=== PATIENT | male | born 1985 | race Hispanic/Latino ===

== ENCOUNTER 2024-11-09 12:51 | Emergency (ER) | payer BC ==
[~2024-11-09] VITALS: Ht 172.7 cm; Wt 74.8 kg
[2024-11-09 14:28] LABS: BASOPHILS # (AUTO) 0.05 K/uL (0.00-0.20); BASOPHILS % (AUTO) 0.4 % (0.0-5.0); EOSINOPHILS # (AUTO) 0.02 K/uL (0.00-0.70); EOSINOPHILS % (AUTO) 0.2 % (0.0-8.0); HEMATOCRIT 45.1 % (42-54); IMMATURE GRANULOCYTE ABSOLUTE 0.04 K/uL (0-1); MEAN CORPUSCULAR HEMOGLOBIN 30.4 pg (27.0-33.0); MEAN CORPUSCULAR HGB CONC 34.6 g/dL (32.0-36.0); MEAN CORPUSCULAR VOLUME 87.9 fL (79-99); MONOCYTES # (AUTO) 0.7 K/uL (0.1-1.0); MONOCYTES % (AUTO) 5.6 % (3.0-13.0); NEUTROPHILS # (AUTO) 10.8 K/uL (1.8-7.7); NEUTROPHILS % (AUTO) 85.5 % (40.0-77.0); PLATELET COUNT (AUTO) 237 K/uL (130-400); RED BLOOD CELL COUNT(AUTO) 5.13 MIL/uL (4.50-6.20); RED CELL DISTRIBUTION WIDTH 12.4 % (11.0-15.5); WHITE BLOOD COUNT (AUTO) 12.7 K/uL (4.8-10.8)
[2024-11-09 14:29] LABS: APPEARANCE,URINE TURBID (CLEAR); BILIRUBIN,URINE NEGATIVE (NEGATIVE); COLOR,URINE YELLOW (YELLOW); GLUCOSE, URINE (UA) NEGATIVE (NEGATIVE); KETONES,URINE 20 mg/dL (NEGATIVE); LEUKOCYTE ESTERASE ,URINE NEGATIVE Leu/uL (NEGATIVE); NITRATE,URINE NEGATIVE (NEGATIVE); OCCULT BLOOD,URINE SMALL (NEGATIVE); PH,URINE 5.5 (5.0-8.0); PROTEIN,URINE 30 mg/dL (NEGATIVE); UROBILINOGEN,URINE 0.2 mg/dL (0.2-1.0)
[2024-11-09 14:32] LABS: ADD UA MICROSCOPIC YES
[2024-11-09 14:33] LABS: BACTERIA,URINE RARE /HPF (None Seen); MUCUS,URINE FEW LPF (None Seen); SQUAMOUS EPITHELIAL CELL,UR RARE /HPF (0-2); UNCLASSIFIED CRYSTAL 14 /HPF (None Seen); YEAST,URINE BUDDING FEW /HPF (None Seen)
--- NOTE | 2024-11-09 15:15 | NUR ---
PATIENT BEDDED TO ROOM 17
[2024-11-09 15:17] LABS: ALBUMIN 4.6 g/dL (3.5-5.0); BILIRUBIN,DIRECT 0.1 mg/dL (0.0-0.3); BILIRUBIN,TOTAL 0.6 mg/dL (0.2-1.0); CREATININE 1.3 mg/dL (0.5-1.3); POTASSIUM 3.8 mmol/L (3.5-5.1); TOTAL PROTEIN, SERUM 8.2 g/dL (6.0-8.3)
--- NOTE | 2024-11-09 15:17 | ERN ---
General Chief Complaint: Abdominal Pain Stated Complaint: SHOOTING BACK PAIN, CHILLS, WEAK Time Seen by MD: 12:52 Source: patient History of Present Illness Initial Comments PATIENT IS A 39-YEAR-OLD MALE COMING IN TO BE EVALUATED FOR LOWER ABDOMINAL PA IN. PER PATIENT THE PAIN BEGAN EARLIER IN THE MORNING. pT STATES THAT THE PAIN HAS BEEN IN THE LOWER ABDOMINAL REGION AND HE QUANTIFIES IT AT 10/10 SHARP. Allergies: Coded Allergies: No Known Drug Allergies (Unverified Allergy, Unknown, 11/09/24) Past Medical History Past Medical History: Asthma Past Surgical History: None Results Laboratory and Microbiology Lab and Micro Result Laboratory Tests Test 11/09/24 14:09 11/09/24 15:50 White Blood Count 12.7 K/uL (4.8-10.8) H Red Blood Count 5.13 MIL/uL (4.50-6.20) Hemoglobin 15.6 g/dL (14.0-18.0) Hematocrit 45.1 % (42-54) Mean Corpuscular Volume 87.9 fL (79-99) Mean Corpuscular Hemoglobin 30.4 pg (27.0-33.0) Mean Corpuscular Hemoglobin Concent 34.6 g/dL (32.0-36.0) Red Cell Distribution Width 12.4 % (11.0-15.5) Platelet Count 237 K/uL (130-400) Mean Platelet Volume 10.3 fL (7.5-10.5) Immature Granulocyte % (Auto) 0.3 % (0-1) Neutrophils (%) (Auto) 85.5 % (40.0-77.0) H Lymphocytes (%) (Auto) 8.0 % (21.0-51.0) L Monocytes (%) (Auto) 5.6 % (3.0-13.0) Eosinophils (%) (Auto) 0.2 % (0.0-8.0) Basophils (%) (Auto) 0.4 % (0.0-5.0) Neutrophils # (Auto) 10.8 K/uL (1.8-7.7) H Lymphocytes # (Auto) 1.0 K/uL (1.0-4.8) Monocytes # (Auto) 0.7 K/uL (0.1-1.0) Eosinophils # (Auto) 0.02 K/uL (0.00-0.70) Basophils # (Auto) 0.05 K/uL (0.00-0.20) Absolute Immature Granulocyte (auto 0.04 K/uL (0-1) Nucleated Red Blood Cells 0.0 % (0.0-0.19) White Cell Morphology Comment See comments Urine Color YELLOW (YELLOW) Urine Appearance TURBID (CLEAR) Urine pH 5.5 (5.0-8.0) Urine Specific [place] 1.035 (1.001-1.031) Urine Protein 30 mg/dL (NEGATIVE) H Urine Glucose (UA) NEGATIVE mg/dL (NEGATIVE) Urine Ketones 20 mg/dL (NEGATIVE) H Urine Occult Blood SMALL (NEGATIVE) H Urine Nitrate NEGATIVE (NEGATIVE) Urine Bilirubin NEGATIVE mg/dL (NEGATIVE) Urine Urobilinogen 0.2 mg/dL (0.2-1.0) Urine Leukocyte Esterase NEGATIVE Josette/uL Urine RBC 6-10 /HPF (0-1) H Urine WBC 2-5 /HPF (0-1) H Urine Squamous Epithelial Cells RARE /HPF (0-2) Urine Other Crystals (Auto) 14 /HPF (None Seen) Urine Bacteria RARE /HPF (None Seen) Urine Yeast FEW /HPF (None Seen) Sodium Level 140 mmol/L (136-145) Potassium Level 3.8 mmol/L (3.5-5.1) Chloride Level 105 mmol/L (101-111) Carbon Dioxide Level 25 mmol/L (21-32) Blood Urea Nitrogen 21 mg/dL (7-18) H Creatinine 1.3 mg/dL (0.5-1.3) Glomerular Filtration Rate Calc 72 mL/min (>90) Random Glucose 147 mg/dL (70-105) H Total Calcium 9.4 mg/dL (8.5-10.1) Total Bilirubin 0.6 mg/dL (0.2-1.0) Direct Bilirubin 0.1 mg/dL (0.0-0.3) Aspartate Amino Transf (AST/SGOT) 26 U/L (10-37) Alanine Aminotransferase (ALT/SGPT) 38 U/L (12-78) Alkaline Phosphatase 110 U/L (50-136) B-Type Natriuretic Peptide 6 pg/mL (0-100) 6 pg/mL (0-100) Total Protein 8.2 g/dL (6.0-8.3) Albumin 4.6 g/dL (3.5-5.0) Lipase 32 U/L (16-77) Urine Opiates Screen NEGATIVE (NEGATIVE) Urine Barbiturates Screen NEGATIVE (NEGATIVE) Urine Phencyclidine Screen NEGATIVE (NEGATIVE) Urine Amphetamines Screen NEGATIVE (NEGATIVE) Urine Benzodiazepines Screen NEGATIVE (NEGATIVE) Urine Cocaine Screen NEGATIVE (NEGATIVE) Urine Marijuana (THC) Screen NEGATIVE (NEGATIVE) EKG/XRAY/US/CT/MRI CT Scan Comment [place] [id number] [place] [address] IMAGING REPORT Signed PATIENT: KRYSTAL FELIX MR#: [id number] : 1985 SEX: M AGE: 39 LOCATION: [facility] ORDER 14 STATUS: REG ER REPORT#: [id number] SERVICE 13 REASON: LOWER ABD PAIN ORDERING PHYSICIAN: LINWOOD SORTO MD PROCEDURE: ABD PEL WO - CT ABDOMEN/PELVIS W/O CONTRAST CT ABDOMEN/PELVIS W/O CONTRAST HISTORY: Lower abdominal pain COMPARISON: None TECHNIQUE: Multiple sequential axial images of the abdomen and pelvis were obtained from the dome of the diaphragm through symphysis pubis. Patient was not given contrast through intravenous route. Oral contrast was not given. FINDINGS: No pleural effusion is seen bilaterally. There is no evidence of parenchymal disease or pulmonary nodule of the visualized lower lungs. Degenerative changes of the thoracolumbar spine are present. The heart is not enlarged. The liver, spleen, adrenal glands and pancreas are unremarkable. There is minimal right hydronephrosis with right perinephric fat stranding may be related to nonradiopaque stone versus recently passed stone versus pyelonephritis. Urinalysis correlation may be helpful. No hydronephrosis is seen on the left. There is mild diverticulosis. Fecal material is seen in the colon. There are normal size retroperitoneal and mesenteric lymph nodes. No ascites is seen. Appendix is not seen limiting evaluation. Pelvic sidewalls are symmetric bilaterally. Bladder is poorly distended. IMPRESSION: 1. There is minimal right hydronephrosis with right perinephric fat stranding may be related to nonradiopaque stone versus recently passed stone versus pyelonephritis. Urinalysis correlation may be helpful. No hydronephrosis is seen on the left. CT was performed with one or more following dose reduction techniques: automated exposure control, adjustment of the mA and kv according to patient's size, or use of a iterative reconstruction technique. DICTATED BY: ALEXANDR CA MD DATE: 11/09/241653 ELECTRONICALLY SIGNED BY: ALEXANDR CA MD DATE: 11/09/24 1700 [facility] MDM: DIFFERENTIAL DIAGNOSIS: KIDNEY STONE PASSED, NEPHROLITHIASIS, APPENDICITIS, URETEROLITHIASIS, PATIENT IS A 39-YEAR-OLD GENTLEMAN COMING IN TO BE EVALUATED FOR LOWER ABDOMINAL PAIN. PER PATIENT HE STARTED HAVING THE DISCOMFORT SINCE EARLIER TODAY. CT DISCLOSE NO ACUTE FINDINGS BUT A POSSIBILITY OF A RECENTLY PASSED STONE WAS PRESENT. PATIENT WILL BE DISCHARGED WITH A DIAGNOSIS OF NEPHROLITHIASIS PAST. MEDICATION FOR SYMPTOMATIC RELIEF WILL BE PROVIDED. ED Course Orders Procedure Category Date Status Time Urinalysis Profile LAB 11/09/24 Complete 13:35 Cbc With Differential LAB 11/09/24 Complete 13:35 B-Type Natriuretic LAB 11/09/24 Complete Peptide 13:35 Basic Metabolic Panel LAB 11/09/24 Complete 13:35 Hepatic Function Panel LAB 11/09/24 Complete 13:35 Lipase LAB 11/09/24 Complete 13:35 Ct Abdomen/Pelvis W/O CT 11/09/24 Resulted Contrast 15:14 Ketorolac PHA 11/09/24 Complete Tromethamine 30mg/Ml 15:30 Drug Screen Urine LAB 11/09/24 Complete 15:15 B-Type Natriuretic LAB 11/09/24 Complete Peptide 15:50 Current Medications Medications (Trade) Dose Ordered Sig/Shad Route PRN Reason Start Time Stop Time Status Last Admin Dose Admin Ketorolac Tromethamine (toRADol) 30 mg ONCE ONCE IVP 11/09/24 15:30 11/09/24 15:31 DC 11/09/24 15:33 Vital Signs Date Time Temp Pulse Resp B/P (MAP) Pulse Ox O2 Delivery O2 Flow Rate FiO2 11/09/24 15:15 98.1 75 16 126/81 98 Room Air* 0 21 11/09/24 13:31 97.0 76 18 148/100 98 Room Air 0 DX & DISP Disposition: Discharge Departure Impression: Primary Impression: Nephrolithiasis Condition: Stable Scripts Cephalexin Monohydrate (Keflex) 500 Mg Cap 1 CAP PO TID for 10 Days, #30 CAP 0 Refills Prov: LINWOOD SORTO MD 11/09/24 Tamsulosin HCl (Flomax) 0.4 Mg Cap.er.24h 1 CAP PO DAILY for 7 Days, #7 CAP 0 Refills Prov: LINWOOD SORTO MD 11/09/24 Ketorolac Tromethamine (Ketorolac Tromethamine) 10 Mg Tablet 1 TAB PO Q6HPRN PRN for pain for 5 Days, #20 TAB 0 Refills Prov: LINWOOD SORTO MD 11/09/24 Additional Instructions: FOLLOW-UP WITH PRIMARY CARE PROVIDER IN 1 TO 2 DAYS. TAKE MEDICATIONS DIRECTED HERE IN THE EMERGENCY ROOM. OKAY TO CONTINUE HOME MEDICATIONS UNLESS OTHERWISE DISCUSSED DURING YOUR VISIT IN THE EMERGENCY ROOM TODAY. RETURN TO YOUR NEAREST EMERGENCY ROOM IF SYMPTOMS WORSEN OR IF THERE IS NO IMPROVEMENT. CALL 911 IF YOU NEED IMMEDIATE ASSISTANCE. TAKE TYLENOL [id number] NEEDED AND IF NO CONTRAINDICATIONS ARE PRESENT. INCREASE ORAL HYDRATION. A WOUND CULTURE OR URINE CULTURE WAS ORDERED HERE IN THE EMERGENCY ROOM DEPARTMENT PLEASE FOLLOW-UP WITH PRIMARY CARE PROVIDER AND ADVISE THEM TO GET REPEAT PORTS FROM OUR FACILITY. IF YOU HAD ANY RUSSEL WRAP/SPLINTS THAT WERE APPLIED HERE, PLEASE DO NOT REMOVE THEM UNTIL YOU SEE YOUR PRIMARY CARE OR SPECIALTY. REFERRALS: Referrals: SELF,REFERRAL (PCP) GAIL KEN MD Time of Disposition: 17:13 LINWOOD SORTO MD Nov 09, 2024 15:17
[2024-11-09] MEDS: ketOROlac 30MG VIAL (30MG/ML) IVP ONE (15:33)
[2024-11-09 15:48] LABS: AMPHET/METH SCREEN,URINE NEGATIVE (NEGATIVE); BARBITURATE SCREEN, URINE NEGATIVE (NEGATIVE); BENZODIAZEPINES SCREEN,URINE NEGATIVE (NEGATIVE); CANNABINOID SCREEN,URINE NEGATIVE (NEGATIVE); COCAINE SCREEN,URINE NEGATIVE (NEGATIVE); OPIATE SCREEN,URINE NEGATIVE (NEGATIVE); PHENCYCLIDINE SCREEN,URINE NEGATIVE (NEGATIVE)
[2024-11-09 15:51] LABS: B-TYPE NATRIURETIC PEPTIDE 6 pg/mL (0-100)
--- NOTE | 2024-11-09 17:00 | HMCIMG ---
CT ABDOMEN/PELVIS W/O CONTRAST HISTORY: Lower abdominal pain COMPARISON: None TECHNIQUE: Multiple sequential axial images of the abdomen and pelvis were obtained from the dome of the diaphragm through symphysis pubis. Patient was not given contrast through intravenous route. Oral contrast was not given. FINDINGS: No pleural effusion is seen bilaterally. There is no evidence of parenchymal disease or pulmonary nodule of the visualized lower lungs. Degenerative changes of the thoracolumbar spine are present. The heart is not enlarged. The liver, spleen, adrenal glands and pancreas are unremarkable. There is minimal right hydronephrosis with right perinephric fat stranding may be related to nonradiopaque stone versus recently passed stone versus pyelonephritis. Urinalysis correlation may be helpful. No hydronephrosis is seen on the left. There is mild diverticulosis. Fecal material is seen in the colon. There are normal size retroperitoneal and mesenteric lymph nodes. No ascites is seen. Appendix is not seen limiting evaluation. Pelvic sidewalls are symmetric bilaterally. Bladder is poorly distended. IMPRESSION: 1. There is minimal right hydronephrosis with right perinephric fat stranding may be related to nonradiopaque stone versus recently passed stone versus pyelonephritis. Urinalysis correlation may be helpful. No hydronephrosis is seen on the left. CT was performed with one or more following dose reduction techniques: automated exposure control, adjustment of the mA and kv according to patient's size, or use of a iterative reconstruction technique.
[2024-11-09] MEDS ORDERED: TAMS-1 PO (17:14)
[2024-11-09] MEDS ORDERED: KETO10TA2 PO (17:14)
[2024-11-09] MEDS ORDERED: CEPH500B PO (17:14)
[2024-11-09 18:23] VITALS: BP 121/73; PULSE 61; RESP 16; TEMP 98; O2SAT 98
--- NOTE | 2024-11-10 06:36 | EKG ---
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
== END 2024-11-09 18:39 | disposition home or self-care (01) ==
LOC: EDH 12:51
DX: N13.2 Hydronephrosis with renal and ureteral calculous obstruction (principal); J45.909 Unspecified asthma, uncomplicated
CPT/HCPCS: 99284; 74176; 96374; 80076; 80048; 80305; 83690; 85025; 36415; 93005; 81001; 83880 ×2; J1885